=== PATIENT | female | born 1985 | race Caucasian/White ===

== ENCOUNTER 2023-12-27 17:49 | Emergency (ER) | payer OTHER ==
[~2023-12-27] VITALS: Ht 167.6 cm; Wt 131.5 kg
[~2023-12-27 17:49] MED LIST: CIPRO500 MG PO; DOLOGESIC CAPLE1 TAB; FIORICET 50-301 EACH PO; INTESTINEX1 CAP PO; LEVSIN/SL0.125 MG; PEPCID AC20 MG; PROTONIX40 MG PO; SEPTRA DS TABLE1 TAB PO; TRAMADOL HCL50 MG PO
[2023-12-27] MEDS ORDERED: GUAIFENESIN 200 MG/10 ML BLIST.PACK PO STA (21:30)
[2023-12-27] MEDS ORDERED: CEFTRIAXONE SODIUM 1,000 MG VIAL IM STA (21:30)
[2023-12-27] MEDS ORDERED: METHYLPREDNISOLONE SOD SUCC 125 MG VIAL IM STA (21:33)
== END 2023-12-27 21:48 | disposition home or self-care (01) ==
LOC: ER 17:49
DX: J06.9 Acute upper respiratory infection, unspecified (principal); Z20.822 Contact with and (suspected) exposure to COVID-19

== ENCOUNTER 2025-07-11 18:19 | Emergency (ER) | payer OTHER ==
[~2025-07-11] VITALS: Ht 167.6 cm; Wt 136.1 kg
[2025-07-11 19:16] VITALS: BP 134/79; O2SAT 98
[2025-07-11] MEDS ORDERED: MAGNESIUM SULFATE IN WATER 2 GM/50 ML PIGGYBAG IV ONE (19:45)
[2025-07-11] MEDS ORDERED: LEVALBUTEROL HCL 1.25 MG/3 ML SOLUTION IH SCH (19:45)
[2025-07-11] MEDS ORDERED: IPRATROPIUM BROMIDE 0.5 MG/2.5 ML AMPUL.NEB IH SCH (19:45)
[2025-07-11] MEDS ORDERED: CEFTRIAXONE SODIUM 1,000 MG VIAL IV ONE (19:45)
[2025-07-11] MEDS ORDERED: BENZONATATE 200 MG CAPSULE PO ONE (19:45)
[2025-07-11] MEDS ORDERED: METHYLPREDNISOLONE SOD SUCC 125 MG VIAL IV ONE (19:45)
[2025-07-11 22:20] LABS: BASO % 0.8 % (0.1-1.2); EOS # 1.22 (0.04-0.54); EOS % 9.6 % (0.7-7.0); LYMPH # 3.04 (1.18-3.74); LYMPH % 23.9 % (19.3-53.1); MEAN PLATELET VOLUME 9.70 fl (9.4-12.4); MONO # 0.85 (0.24-0.82); MONO % 6.7 % (4.7-12.5); NEUT # 7.49 (1.56-6.13); NEUT % 58.7 % (34.0-71.1); RED CELL DISTRIBUTION WIDTH 20.8 % (11.6-14.4)
[2025-07-11 22:52] LABS: ALT/SGPT 33.0 U/L (12-78); AST/SGOT 21.0 U/L (15-37); BILIRUBIN TOTAL 0.25 mg/dL (0.3-1.2); BUN CREA RATIO 23.0 (7.0-25.0); CREATININE SERUM 0.64 mg/dL (0.55-1.02); GFR 101.76; GLOBULINA 5.4 G/DL (2.4-3.5); GLUCOSE FASTING 120.0 mg/dL (65-100); OSMOLALITY SERUM 280.0 MOSM/KG (275-295)
[2025-07-11 23:05] LABS: COVID-19 AG NEGATIVE (NEGATIVE)
[2025-07-11] MEDS ORDERED: MEDROLPACK PO (23:37)
[2025-07-11] MEDS ORDERED: BENZONATATE200 M1 PO (23:37)
[2025-07-11] MEDS ORDERED: PEPCID AC20 MG PO (23:37)
[2025-07-11] MEDS ORDERED: ZITHROMAX500 MG PO (23:37)
[2025-07-11] MEDS ORDERED: LEVALBUTER0.63 MG/3 IH (23:37)
== END 2025-07-11 23:47 | disposition home or self-care (01) ==
LOC: ER 18:19
PROVIDERS: General Practice
DX: J45.31 Mild persistent asthma with (acute) exacerbation (principal); J40 Bronchitis, not specified as acute or chronic; Z20.822 Contact with and (suspected) exposure to COVID-19; Z91.013 Allergy to seafood